=== PATIENT | female | born 1955 | race Caucasian/White ===

== ENCOUNTER 2017-01-05 06:10 | Day surgery (SDC) | payer MEDICARE, OTHER ==
[~2017-01-05] VITALS: Ht 163.8 cm; Wt 67.3 kg
[~2017-01-05 06:10] MED LIST: LORT7.5T3 PO; MORP30SU PO; SERO400T PO; TEMA15CA PO; TRAM50TA PO
[2017-01-05] MEDS ORDERED: PRED1 PO (06:39)
[2017-01-05 06:42] VITALS: BP 109/71; PULSE 76; RESP 20; TEMP 97.8; O2SAT 95
[2017-01-05] MEDS ORDERED: ceFAZolin 2 GM PREMIX 50 ML - implanted port removal IV SCH (07:00)
[2017-01-05] MEDS ORDERED: SODIUM CHLORIDE 0.9% 1000 ML IV SCH (07:00)
[2017-01-05] MEDS ORDERED: LIDOCAINE 1%/EPINEPHrine 1:100,000 SOLN 20 ML VIAL ONE (07:52)
[2017-01-05 08:40] VITALS: BP 142/74; PULSE 71; RESP 18; TEMP 97.6; O2SAT 93
--- NOTE | 2017-01-05 08:43 | PD.RAD ---
Post Procedure Progress Note Pre Procedure Diagnosis: (1) History of lung cancer Post Procedure Diagnosis: (1) History of lung cancer Procedure Date: Jan 05, 2017 Supervising Radiologist: Jude Beltran Proceduralist/Assist: David Vargas RT(R), RT Nikolas(R)(CV) Anesthesia: Local, Analgesia Plan of Activity Patient to Unit: ROPU Patient Condition: Good See PACS Report for procedural detail/treatment Central Venous Access Device Procedure 1 Left Infusaport Removal single lumen Rwandan: 8 Jude Beltran MD Jan 05, 2017 08:43
[2017-01-05 08:55] VITALS: BP 129/84; PULSE 66; RESP 18; O2SAT 94
[2017-01-05 09:25] VITALS: BP 94/54; PULSE 78; RESP 18; O2SAT 93
--- NOTE | 2017-01-06 16:20 | RADRPT ---
EXAM DATE/TIME: 01/05/2017 00:00 [facility] COMPARISON: No previous studies available for comparison. INDICATIONS : Patient presents with history of lung cancer in need of port removal that is no longer needed. MEDICAL HISTORY : History of lung cancer with brain mets Hx pneumonia COPD SURGICAL HISTORY : T and A Left port placement Brain mass resection ENCOUNTER: Initial ACUITY: > 1 year PAIN SCORE: 0/10 LOCATION: N/A 1.) 15 units Lidocaine with epinephrine SC Prophylactic antibiotics were administered with appropriate pre-procedure timing. Vancomycin within 2 hrs of procedure, Ancef (or alternative) within 1 hr of procedure. PROCEDURE : 1. Removal of [id number]. 2. Conscious sedation with continuous EKG and oximetry monitoring. The risk, benefits and potential complications of Wqffas-i-[id number] removal were discussed. Written conse nt was obtained. The patient was placed supine. The chest wall was prepped in sterile fashion. Full sterile techniqu e was used, including cap, mask, sterile gloves and gown, and a large sterile sheet. Hand hygiene an d 2% chlorhexidine and/or Betadine/alcohol prep was utilized per protocol for cutaneous antisepsis. The skin and subcutaneous tissues were infiltrated with local anesthetic solution. A small incision w as made, the subcutaneous pocket was opened. The port was dissected from the subcutaneous tissues and easily removed in one piece. The pocket incision was closed with subcuticular Vicryl suture. Steri -Strips were applied. Conscious sedation was performed with the prescribed dosages and duration as above. The patient tole rated the procedure well and there were no complications. EKG and oximetry remained stable throughou t the procedure. The patient was sent to post anesthesia recovery in stable condition. CONCLUSION: Uncomplicated port removal as above. Jude Beltran MD on January 06, 2017 at 16:18 Board Certified Radiologist. This report was verified electronically.
== END 2017-01-05 09:40 | disposition home or self-care (01) ==
LOC: HROP 06:10 → HRIP 06:11 → HROP 09:40
PROVIDERS: ATTEND Internal Medicine Hematology & Oncology
DX: Z85.118 Personal history of other malignant neoplasm of bronchus and lung (principal)
CPT/HCPCS: 36590; J0690; J7030

== ENCOUNTER → 2017-06-22 | Outpatient (CLI) | payer MEDICARE ==
[~2017-06-22] MED LIST changes: -LORT7.5T3 PO; -MORP30SU PO; +PRED1 PO; -TRAM50TA PO
--- NOTE | 2017-06-24 12:44 | RSPPFT ---
DATE OF PROCEDURE: 06/22/17 COMMENTS: Spirometry with FVC of 2.5, FEV1 of 1.2, FEV1/FVC ratio at 51%. A positive and significant response to acutely inhaled bronchodilator noted. Slow vital capacity is 96% of predicted. TLC is 114%. Diffusion capacity is 58%. IMPRESSION: 1. Moderately severe airways obstruction. 2. No evidence of airways restriction. 3. Mild reduction in diffusion capacity. 4. Positive and significant response to acutely inhaled bronchodilator.
== END ==
LOC: PHRSP 10:40
PROVIDERS: ATTEND Internal Medicine
DX: J42 Unspecified chronic bronchitis (principal); J44.9 Chronic obstructive pulmonary disease, unspecified; C34.90 Malignant neoplasm of unspecified part of unspecified bronchus or lung
CPT/HCPCS: 94060; 94726; 94729

== ENCOUNTER 2017-08-10 14:15 | Inpatient (IN) | payer MEDICARE ==
[~2017-08-10] VITALS: Ht 162.6 cm; Wt 74.3 kg
[2017-08-10 15:03] VITALS: BP 136/82; PULSE 82; RESP 16; TEMP 97.4; O2SAT 96
--- NOTE | 2017-08-10 16:11 | RADRPT ---
EXAM DATE/TIME: 08/10/2017 15:46 [facility] COMPARISON: No previous studies available for comparison. INDICATIONS : Right forearm pain; fall today. MEDICAL HISTORY : None. SURGICAL HISTORY : None. ENCOUNTER: Initial ACUITY: 1 day PAIN SCORE: 10/10 LOCATION: Right forearm. FINDINGS: Two view examination of the right forearm demonstrates no evidence of fracture or dislocation. Bony mineralization is normal. The soft tissue structures are intact. CONCLUSION: Negative, incomplete evaluation of the wrist and elbow. Hung Rosario MD FACR on August 10, 2017 at 16:08 Board Certified Radiologist. This report was verified electronically.
--- NOTE | 2017-08-10 16:12 | RADRPT ---
EXAM DATE/TIME: 08/10/2017 15:47 [facility] COMPARISON: No previous studies available for comparison. INDICATIONS : Right upper arm pain; fall today. MEDICAL HISTORY : None. SURGICAL HISTORY : None. ENCOUNTER: Initial ACUITY: 1 day PAIN SCORE: 10/10 LOCATION: Right humerus. FINDINGS: There is severely comminuted fracture proximal humerus with large butterfly fragment evident. The hu meral head is aligned with the femoral condyle. CONCLUSION: Humeral fracture involving proximal humerus as described above. Hung Rosario MD FACR on August 10, 2017 at 16:09 Board Certified Radiologist. This report was verified electronically.
[2017-08-10] MEDS ORDERED: VENTAER INH (16:30)
[2017-08-10] MEDS ORDERED: TEMA15CA PO (16:30)
[2017-08-10] MEDS ORDERED: SERO400T PO (16:30)
[2017-08-10] MEDS ORDERED: PRED1 PO (16:30)
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
[2017-08-10] MEDS ORDERED: ONDANSETRON HCL 4 MG/2 ML VIAL IV PUSH ONE (16:45)
[2017-08-10] MEDS ORDERED: MORPHINE SULFATE 4 MG/ML INJ IV PUSH ONE (16:45)
[2017-08-10] MEDS ORDERED: LACTULOSE SYRUP 20 GM/30 ML CUP PO PRN (17:45)
[2017-08-10] MEDS ORDERED: ALBUTEROL SULFATE 90 MCG/ACT HFA 8 GM INHALER INH PRN (17:45)
[2017-08-10] MEDS ORDERED: MORPHINE SULFATE 4 MG/ML INJ IV PRN (17:45)
[2017-08-10] MEDS ORDERED: BISACODYL 10 MG SUPP RECTAL PRN (17:45)
[2017-08-10] MEDS ORDERED: TEMAZEPAM 15 MG CAP PO PRN (17:45)
[2017-08-10] MEDS ORDERED: SODIUM CHLORIDE 0.9% FLUSH 10 ML FLUSH IV FLUSH PRN (17:45)
[2017-08-10] MEDS ORDERED: NALOXONE HCL 0.4 MG/ML AMP IV PRN (17:45)
[2017-08-10] MEDS ORDERED: ACETAMINOPHEN 325 MG TAB PO PRN (17:45)
[2017-08-10] MEDS ORDERED: ACETAMINOPHEN/HYDROcodone 325 MG/5 MG TAB PO PRN (17:45)
[2017-08-10] MEDS ORDERED: MAGNESIUM HYDROXIDE SUSP 30 ML CUP PO PRN (17:45)
[2017-08-10] MEDS ORDERED: ONDANSETRON HCL 4 MG/2 ML VIAL IVP PRN (17:45)
[2017-08-10] MEDS ORDERED: SENNOSIDES 8.6 MG TAB PO PRN (17:45)
--- NOTE | 2017-08-10 17:53 | HHI.HP ---
[facility] Sanjiv Carlos M.D. 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 She states she was trying to move food from 1 [place] to the next when she slipped and fell landing on her outstretched right hand. She states her torso twisted as she fell. In the emergency department x- ray showed a proximal humerus fracture. Orthopedic surgery requested the patient be transferred to the [facility] for surgery. The patient states she 's otherwise been in a good state of health recently. 10 point review systems negative. She does have a history of COPD and continues to smoke but does not use home oxygen. She also has a history of lung cancer treated with radiation and chemotherapy 1 year ago under the treatment of Dr. chase and she has been in remission. Past Family Social History Past Medical History COPD Lung cancer Reported Medications Allergies Coded Allergies Type Severity Reaction Last Updated Verified levofloxacin Allergy Intermediate PT STATES THAT SHE IS NOT ALLERGIC 08/10/17 No Active Scripts Medications Dose Route/Sig Max Daily Dose Days Date Category Ventolin Hfa 18 GM Inh (Albuterol Sulfate) 90 Mcg/Act Aer 2 Puff INH Q4-6H PRN 08/10/17 Reported Prednisone 1 Mg Tab 0.5 Mg PO DAILY 08/10/17 Reported Temazepam 15 Mg Cap 15 Mg PO HS PRN 08/10/17 Reported Seroquel (Quetiapine Fumarate) 400 Mg Tab 400 Mg PO HS 08/10/17 Reported Allergies: Coded Allergies: levofloxacin (Unverified Allergy, Intermediate, PT STATES THAT SHE IS NOT ALLERGIC, 08/10/17) PT STATES NOT ALLERGIC. Family History Reviewed and noncontributory Social History Denies alcohol Physical Exam Vital Signs Vital Signs Date Time Temp Pulse Resp B/P (MAP) Pulse Ox O2 Delivery O2 Flow Rate FiO2 08/10/17 15:03 97.4 82 16 136/82 (100) 96 Physical Exam GENERAL: Well-nourished, well-developed patient. SKIN: Warm and dry. HEAD: Normocephalic. EYES: No scleral icterus. No injection or drainage. NECK: Supple, trachea midline. No JVD or lymphadenopathy. CARDIOVASCULAR: Regular rate and rhythm without murmurs, gallops, or rubs. RESPIRATORY: Breath sounds equal bilaterally. No accessory muscle use. GASTROINTESTINAL: Abdomen soft, non-tender, nondistended. EXTREMITIES: No cyanosis, or edema. Marked swelling of her right shoulder and upper humerus. NEUROLOGICAL: Awake, alert, and oriented x 3. Non-focal. Caprini VTE Risk Assessment Caprini VTE Risk Assessment: Mod/High Risk (score >= 2) Caprini Risk Assessment Model Point Value = 1 Point Value = 2 Point Value = 3 Point Value = 5 Age 41-60 Minor surgery BMI > 25 kg/m2 Swollen legs Varicose veins or History of unexplained or recurrent spontaneous Oral contraceptives or hormone replacement Sepsis (< 1 month) Serious lung disease, including pneumonia (< 1 month) Abnormal pulmonary function Acute myocardial infarction Congestive heart failure (< 1 month) History of inflammatory bowel disease Medical patient at bed rest Age 61-74 Arthroscopic surgery Major open surgery (> 45 min) Laparoscopic surgery (> 45 min) Malignancy Confined to bed (> 72 hours) Immobilizing plaster cast Central venous access Age >= 75 History of VTE Family history of VTE Factor V Leiden Prothrombin [id number] Lupus anticoagulant Anticardiolipin antibodies Elevated serum homocysteine Heparin-induced thrombocytopenia Other congenital or acquired thrombophilia Stroke (< 1 month) Elective arthroplasty Hip, pelvis, or leg fracture Acute spinal cord injury (< 1 month) Prophylaxis Regimen Total Risk Factor Score Risk Level Prophylaxis Regimen 0-1 Low Early ambulation 2 Moderate Order ONE of the following: *Sequential Compression Device (SCD) *Heparin 5000 units SQ BID 3-4 Higher Order ONE of the following medications: *Heparin 5000 units SQ TID *Enoxaparin/Lovenox 40 mg SQ daily (WT < 150 kg, CrCl > 30 mL/min) *Enoxaparin/Lovenox 30 mg SQ daily (WT < 150 kg, CrCl > 10-29 mL/min) *Enoxaparin/Lovenox 30 mg SQ BID (WT < 150 kg, CrCl > 30 mL/min) AND/OR *Sequential Compression Device (SCD) 5 or more Highest Order ONE of the following medications: *Heparin 5000 units SQ TID (Preferred with Epidurals) *Enoxaparin/Lovenox 40 mg SQ daily (WT < 150 kg, CrCl > 30 mL/min) *Enoxaparin/Lovenox 30 mg SQ daily (WT < 150 kg, CrCl > 10-29 mL/min) *Enoxaparin/Lovenox 30 mg SQ BID (WT < 150 kg, CrCl > 30 mL/min) AND *Sequential Compression Device (SCD) Assessment and Plan Problem List: (1) COPD (chronic obstructive pulmonary disease) ICD Code: J44.9 - Chronic obstructive pulmonary disease, unspecified (2) Right humeral fracture ICD Code: S42.301A - Unspecified fracture of shaft of humerus, right arm, initial encounter for closed fracture Status: Acute (3) History of lung cancer ICD Code: Z85.118 - Personal history of other malignant neoplasm of bronchus and lung Status: Acute Assessment and Plan -Right humerus fracture. As per orthopedic surgery -COPD without acute exacerbation. Continue bronchodilators and prednisone daily. -History of lung cancer in remission. -DVT prophylaxis with SCDs Problem Qualifiers (1) Right humeral fracture: Qualified Codes: S42.291A - Other displaced fracture of upper end of right humerus, initial encounter for closed fracture Brianna Milian MD Aug 10, 2017 17:53
--- NOTE | 2017-08-10 17:54 | RADRPT ---
EXAM DATE/TIME: 08/10/2017 17:33 [facility] COMPARISON: No previous studies available for comparison. INDICATIONS : Right wrist pain. MEDICAL HISTORY : None. SURGICAL HISTORY : None. ENCOUNTER: Initial ACUITY: 1 day PAIN SCORE: 4/10 LOCATION: Right wrist. FINDINGS: Three view examination of the right wrist demonstrates soft tissue swelling. Minimally displaced frac ture distal radius. Prominent degenerative changes within the lateral carpus and first carpometacarpa l joint. Bony mineralization is normal. CONCLUSION: Minimal displaced distal radius fracture. Ignacio Sandoval MD on August 10, 2017 at 17:53 Board Certified Radiologist. This report was verified electronically.
[2017-08-10 18:14] LABS: AUTOMATED NEUTROPHIL # 13.1 TH/MM3 (1.8-7.7); BASOPHIL % 0.1 % (0.0-2.0); EOSINOPHIL # 0.1 TH/MM3 (0-0.4); EOSINOPHIL % 0.4 % (0.0-4.0); HEMATOCRIT 42.5 % (35.0-46.0); LYMPH % 4.8 % (9.0-44.0); LYMPHOCYTE # 0.7 TH/MM3 (1.0-4.8); MEAN CELL VOLUME 89.7 FL (80.0-100.0); MEAN CORPUSCULAR HEMOGLOBIN 30.3 PG (27.0-34.0); MEAN CORPUSCULAR HGB CONC 33.7 % (32.0-36.0); MONO % 5.4 % (0.0-8.0); NEUT % 89.3 % (16.0-70.0); PLATELET COUNT 246 TH/MM3 (150-450); RED BLOOD COUNT 4.74 MIL/MM3 (4.00-5.30); RED CELL DISTRIBUTION WIDTH 13.9 % (11.6-17.2); WHITE BLOOD COUNT 14.7 TH/MM3 (4.0-11.0)
--- NOTE | 2017-08-10 18:14 | RADRPT ---
EXAM DATE/TIME: 08/10/2017 17:30 [facility] COMPARISON: CTA CHEST W 3D RECON, December 30, 2012, 14:04. INDICATIONS : Evaluate for pneumonia, pneumothorax, or communicable disease. Pre op for right humerus surgery. MEDICAL HISTORY : Carcinoma, lung. Chronic obstructive pulmonary disease. SURGICAL HISTORY : Infusaport. ENCOUNTER: Initial ACUITY: 1 day PAIN SCORE: 0/10 LOCATION: Bilateral chest FINDINGS: There is irregular density seen in the right upper lung. There is retraction of the mediastinum in th is region. This finding was seen on a prior CT examination from 12/30/2012. The heart size is normal. The lungs are otherwise clear. No effusion is seen. There is fracture of the proximal right humerus. CONCLUSION: Chronic change in the right upper lobe that has been present since 2012. This is likely from prior tr eatment for lung cancer. An acute abnormality within the chest is not seen. There is an acute appeari ng proximal right humerus fracture. Galileo Deshpande MD on August 10, 2017 at 18:10 Board Certified Radiologist. This report was verified electronically.
[2017-08-10 18:17] LABS: HEMO FLAGS DIFF FINAL
[2017-08-10 18:21] LABS: CHLORIDE 105 MEQ/L (98-107); POTASSIUM 3.8 MEQ/L (3.5-5.1); SODIUM (NA) 138 MEQ/L (136-145)
[2017-08-10 18:23] LABS: APTT (PATIENT) 24.7 SEC (24.3-30.1); INTERNATIONAL NORMALIZED RATIO 0.9 RATIO; PROTHROMBIN TIME - PATIENT 10.3 SEC (9.8-11.6)
[2017-08-10 18:25] LABS: ANION GAP 6 MEQ/L (5-15); BICARBONATE 26.8 MEQ/L (21.0-32.0)
[2017-08-10 18:26] LABS: BLOOD UREA NITROGEN 13 MG/DL (7-18)
[2017-08-10 18:28] LABS: ALT (GPT) 24 U/L (10-53)
[2017-08-10 18:29] LABS: AST (GOT) 25 U/L (15-37); GLOMERULAR FILTRATION RATE 60 ML/MIN (>89)
[2017-08-10 18:30] LABS: TOTAL BILIRUBIN ADULT 0.5 MG/DL (0.2-1.0)
[2017-08-10 18:31] LABS: ALKALINE PHOSPHATASE 91 U/L (45-117)
[2017-08-10 18:38] VITALS: BP 111/73; PULSE 78; RESP 16; O2SAT 95
[2017-08-10] MEDS: SODIUM CHLOR 0.9% 1000 ML INJ 1,000 ML IV SCH (20:49)
[2017-08-10] MEDS: SODIUM CHLORIDE 0.9% FLUSH 10 ML FLUSH IV FLUSH SCH (20:54)
[2017-08-10 23:39] VITALS: BP 124/78
[2017-08-11] VITALS (7 sets, daily range): BP systolic 93–165; BP diastolic 55–85; PULSE 64–85; RESP 16–18; TEMP 96.2–98.4; O2SAT 93–96
[2017-08-11] MEDS: ACETAMINOPHEN/HYDROcodone 325 MG/7.5 MG TAB PO PRN ×4 (00:31→19:34)
[2017-08-11] MEDS: DOCUSATE SODIUM 50 MG/SENNA 8.6 MG TAB PO SCH ×3 (00:31→19:35)
[2017-08-11] MEDS: QUEtiapine FUMARATE 200 MG TAB PO SCH ×2 (00:31→19:35)
[2017-08-11] MEDS: SODIUM CHLOR 0.9% 1000 ML INJ 1,000 ML IV SCH ×3 (00:32→21:49)
[2017-08-11] MEDS ORDERED: LACTATED RINGER'S 1000 ML IV PRN (03:00)
[2017-08-11] MEDS ORDERED: SODIUM CHLORID 0.9% 500 ML IV PRN (03:00)
--- NOTE | 2017-08-11 07:16 | PD.ORT.PN ---
Subjective Subjective Remarks Slip and fall onto right arm with significant pain to right shoulder and humerus Objective Vitals Vital Signs Date Time Temp Pulse Resp B/P (MAP) Pulse Ox O2 Delivery O2 Flow Rate FiO2 08/11/17 00:25 97.0 73 17 124/62 (82) 94 08/10/17 23:39 76 18 124/78 (93) 98 21 08/10/17 21:35 18 08/10/17 18:38 78 16 111/73 (86) 95 08/10/17 15:03 97.4 82 16 136/82 (100) 96 Result Diagram: 08/10/17 1650 08/10/17 1650 Other Results Laboratory Tests Test 08/10/17 16:50 Prothromb Time International Ratio 0.9 RATIO Prothrombin Time 10.3 SEC (9.8-11.6) Imaging Last 72 hours Impressions Wrist X-Ray 08/10/17 0000 Signed Impressions: Service Date/Time: Thursday, August 10, 2017 17:33 - CONCLUSION: Minimal displaced distal radius fracture. Ignacio Sandoval MD Radius/Ulna X-Ray 08/10/17 0000 Signed Impressions: Service Date/Time: Thursday, August 10, 2017 15:46 - CONCLUSION: Negative, incomplete evaluation of the wrist and elbow. Hung Rosaroi MD FACR Humerus X-Ray 08/10/17 0000 Signed Impressions: Service Date/Time: Thursday, August 10, 2017 15:47 - CONCLUSION: Humeral fracture involving proximal humerus as described above. Hung Rosario MD FACR Chest X-Ray 08/10/17 0000 Signed Impressions: Service Date/Time: Thursday, August 10, 2017 17:30 - CONCLUSION: Chronic change in the right upper lobe that has been present since 2012. This is likely from prior treatment for lung cancer. An acute abnormality within the chest is not seen. There is an acute appearing proximal right humerus fracture. Galileo Deshpande MD Objective Remarks Right upper extremity: Coaptation splint in place with ice cuff. No tenderness to palpation over distal radius. She does have tenderness with movement of wrist over tendons. Mild swelling. Distally intact sensation over the radial ulnar median nerve decisions with good capillary refills Assessment & Plan Assessment and Plan Right proximal humerus and humeral shaft fracture Both surgical and nonsurgical intervention is discussed. We'll proceed with surgical intervention today Nothing by mouth Smoking cessation is discussed a must stop smoking, this will continue to create risks with wound palpitations and blocking bone healing Sign consents We'll plan for discharge tomorrow or the next day Basim Thomas Jr. Aug 11, 2017 07:16
[2017-08-11] MEDS ORDERED: HYDR-3583 PO (08:33)
[2017-08-11] MEDS: predniSONE 1 MG TAB PO SCH (09:00)
[2017-08-11] MEDS: SODIUM CHLORIDE 0.9% FLUSH 10 ML FLUSH IV FLUSH SCH (09:00)
[2017-08-11] MEDS ORDERED: RESP: ALBUTEROL 2.5 MG/3 ML NEB (SCH) ONE (09:13)
[2017-08-11] MEDS ORDERED: ERGO1CAP30 PO (10:00)
[2017-08-11] MEDS ORDERED: CALCTAB19 PO (10:00)
[2017-08-11] MEDS ORDERED: VITA2000 PO (10:00)
[2017-08-11] MEDS ORDERED: VANCOMYCIN HCL 1000 MG VIAL ONE (10:20)
[2017-08-11] MEDS ORDERED: ceFAZolin INJ 1,000 MG VIAL ONE (10:20)
[2017-08-11] MEDS ORDERED: ACETAMINOPHEN 1000 MG/100 ML 100 ML IV ONE (10:20)
[2017-08-11] MEDS ORDERED: HYDROmorphone HCL PF 2 MG/ML VIAL ONE (10:20)
[2017-08-11] MEDS ORDERED: GENTAMICIN SULFATE 80 MG/2 ML VIAL ONE (10:20)
[2017-08-11] MEDS ORDERED: PHENYLEPH/NS 1000 MCG/10 ML SYR IV ONE (10:20)
[2017-08-11] MEDS ORDERED: NEOSTIGMINE 3 MG/3 ML SYR IV ONE (10:20)
[2017-08-11] MEDS ORDERED: PROPOFOL 200 MG/20 ML AMP IV ONE (10:20)
[2017-08-11] MEDS ORDERED: ePHEDrine/NS 25 MG/5 ML SYR IV ONE (10:21)
[2017-08-11] MEDS ORDERED: ONDANSETRON HCL 4 MG/2 ML VIAL IV PUSH ONE (10:21)
--- NOTE | 2017-08-11 12:23 | PD.OP ---
cc: Tonio Sanchez MD Operative Report Date of Surgery: Aug 11, 2017 Preoperative Diagnosis: Displaced right humeral neck fracture, displaced right humeral shaft fracture Postoperative Diagnosis: Procedure: Open reduction internal fixation right humeral shaft, open reduction internal fixation right proximal humerus Surgeon: Tonio Sanchez Field Servicer(s): DURAN Pearce PA-C The surgical procedure was assisted by my physician assistant production editor. My P.A. presence was necessary throughout this case for the manipulation and positioning of the surgical extremity. My P.A. was assisting me throughout the duration of this procedure. The skill set of a physician assistant production editor was medically necessary to complete this procedure. During the surgical case the wound care technician was working at the back table and the physician assistant production editor was directly assisting me. Operation and Findings: Patient was seen and evaluated preoperatively. Patient was found to have a displaced right humeral shaft fracture and right proximal humerus fracture. The risks and benefits of surgical and nonsurgical options were discussed in detail and informed consent was obtained for surgery. Patient was brought to the operating room and placed on or table. IV sedation and GETA were administered by anesthesiologist. Antibiotics were given prior to incision. Operative arm and shoulder were prepped with alcohol followed by Hibiclens and draped usual sterile fashion. Timeout procedure was performed. Procedure began with a 9 inch incision over the anterior shoulder. Cephalic vein was identified. A deltopectoral approach was utilized proximally. Distally the biceps was retracted and brachialis muscle was split. Fracture hematoma was now removed from the fracture. The fracture was now visualized. Soft tissue was retracted. Attention was now turned to reduction of the humeral shaft fracture. There was comminution of this region. The fracture fragments were reduced manually. Fracture tenaculums were used to hold provisional fixation. 2 Synthes 2.7 cortical lag screws were placed from anterior to posterior. Good compression was obtained. Next attention was turned towards the humeral neck fracture. The humeral shaft was reduced to the humeral head. Fracture was manipulated to achieve excellent reduction. Multiplanar fluoroscopy confirmed well aligned fracture. Multiple K wires were used to hold provisional fixation. A long Synthes proximal humerus plate was selected to use band all of the fractures. Plate was provisionally held in place K wires. 3.5 cortical screws were used to compress plate to bone. Fluoroscopy confirmed appropriate plate placement and fracture reduction. Multiple locking screws were now placed in the humeral head. Screws were predrilled and premeasured for appropriate length. Care was taken not to penetrate the articular surface. Additional screws were placed in the humeral shaft. Final fluoroscopy revealed well aligned fracture with well- placed hardware. Wound was thoroughly irrigated. Fascia was closed with #1 Vicryl, subcutaneous tissues closed with 3-0 Vicryl, and skin was closed with rachelle. Sterile dressings were applied. Patient was placed into a sling. Patient was awakened and transferred to recovery in stable condition. Needle and sponge counts were correct. Tonio Sanchez MD Aug 11, 2017 12:23
[2017-08-11] MEDS ORDERED: HYDR-3366 PO (12:28)
[2017-08-11] MEDS ORDERED: SODIUM CHLORIDE 0.9% FLUSH 5 ML FLUSH IVF PRN (12:30)
[2017-08-11] MEDS ORDERED: diphenhydrAMINE HCL 25 MG CAP PO PRN (12:30)
[2017-08-11] MEDS ORDERED: DO NOT ADM ANY ANTICOAGULANT DRUGS PRN (13:00)
[2017-08-11] MEDS ORDERED: ERGOCALCIFEROL (VIT D2) 50,000 UNIT CAP PO SCH (13:00)
--- NOTE | 2017-08-11 14:01 | HHI.PR ---
Subjective Remarks Follow-up COPD. Patient seen in PACU following ORIF right humerus fracture. She is still somewhat sedated, and states that she feels tired. Pain is adequately controlled at this time. Denies dyspnea, chest pain, nausea, vomiting. Objective Vitals Vital Signs Date Time Temp Pulse Resp B/P (MAP) Pulse Ox O2 Delivery O2 Flow Rate FiO2 08/11/17 13:30 97.5 70 16 120/63 (82) 96 Nasal Cannula 2 08/11/17 13:15 76 15 125/65 (85) 95 Nasal Cannula 2 08/11/17 13:00 79 14 115/55 (75) 98 Nasal Cannula 3 08/11/17 12:48 97.1 73 14 114/57 (76) 100 Nasal Cannula 4 08/11/17 07:34 96.2 70 16 93/55 (68) 96 08/11/17 04:55 97.2 64 18 165/85 (111) 95 08/11/17 04:45 96.7 76 17 116/59 (78) 93 08/11/17 00:25 97.0 73 17 124/62 (82) 94 08/10/17 23:39 76 18 124/78 (93) 98 21 08/10/17 21:35 18 08/10/17 18:38 78 16 111/73 (86) 95 08/10/17 15:03 97.4 82 16 136/82 (100) 96 I/O 08/10/17 08/10/17 08/10/17 08/11/17 08/11/17 08/11/17 07:00 15:00 23:00 07:00 15:00 23:00 Intake Total 550 ml 1500 ml Output Total 100 ml Balance 550 ml 1400 ml Intake Oral 0 ml IV Total 550 ml Other 1500 ml Output Estimated Blood Loss 100 ml # Voids 3 0 # Bowel Movements 1 Result Diagram: 08/10/17 16508/10/17 1650 Imaging Last Impressions Wrist X-Ray 08/10/17 0000 Signed Impressions: Service Date/Time: Thursday, August 10, 2017 17:33 - CONCLUSION: Minimal displaced distal radius fracture. Ignacio Sandoval MD Radius/Ulna X-Ray 08/10/17 0000 Signed Impressions: Service Date/Time: Thursday, August 10, 2017 15:46 - CONCLUSION: Negative, incomplete evaluation of the wrist and elbow. Hung Rosario MD FACR Humerus X-Ray 08/10/17 0000 Signed Impressions: Service Date/Time: Thursday, August 10, 2017 15:47 - CONCLUSION: Humeral fracture involving proximal humerus as described above. Hung Rosario MD FACR Chest X-Ray 08/10/17 0000 Signed Impressions: Service Date/Time: Thursday, August 10, 2017 17:30 - CONCLUSION: Chronic change in the right upper lobe that has been present since 2012. This is likely from prior treatment for lung cancer. An acute abnormality within the chest is not seen. There is an acute appearing proximal right humerus fracture. Galileo Deshpande MD Objective Remarks General: No acute distress. Somewhat sedated. Heart: Regular rate and rhythm. No murmur. Lungs: Clear to auscultation bilaterally. No wheezes, rales, or rhonchi. Breathing is nonlabored. Abdomen: Soft, nontender, nondistended. Extremities: No lower extremity edema. Psych: Somewhat sedated, but awakens and answers questions appropriately. Procedures 08/11/17 ORIF right humerus fracture Urinary Catheter: No Vascular Central Line Catheter: No A/P Problem List: (1) COPD (chronic obstructive pulmonary disease) ICD Code: J44.9 - Chronic obstructive pulmonary disease, unspecified (2) Right humeral fracture ICD Code: S42.301A - Unspecified fracture of shaft of humerus, right arm, initial encounter for closed fracture Status: Acute (3) History of lung cancer ICD Code: Z85.118 - Personal history of other malignant neoplasm of bronchus and lung Status: Acute Assessment and Plan 1. Right humerus fracture: Status post ORIF. Management per orthopedic surgery. Continue pain control. Right upper extremity in a sling. 2. COPD: Not in acute exacerbation. The dilators as needed. Continue prednisone daily. Supplemental oxygen as needed. The patient states that she does not use oxygen at home. 3. DVT prophylaxis: SCDs. Problem Qualifiers (1) Right humeral fracture: Qualified Codes: S42.291A - Other displaced fracture of upper end of right humerus, initial encounter for closed fracture Raúl Flores MD Aug 11, 2017 14:01
--- NOTE | 2017-08-11 14:04 | EKG ---
Date Performed: 08/10/2017 Time Performed: 17:20:04 PTAGE: 62 years EKG: Sinus rhythm NONSPECIFIC T-WAVE ABNORMALITY BORDERLINE ECG Compared to prior tracing no significant change PREVIOUS TRACING : 04/19/2013 15.04 DOCTOR: Muriel Llamas Interpretating Date/Time 08/11/2017 13:57:45
[2017-08-11] MEDS: CALCIUM/VITAMIN D 250 MG/125 U TAB PO SCH ×2 (14:25→18:26)
[2017-08-11] MEDS: ceFAZolin 2 GM PREMIX 50 ML IV SCH ×2 (14:25→21:49)
--- NOTE | 2017-08-11 15:12 | RADRPT ---
EXAM DATE/TIME: 08/11/2017 12:08 [facility] COMPARISON: HUMERUS RIGHT (MIN 2VWS), August 10, 2017, 15:47. INDICATIONS : Right proximal humerus fracture repair. OR. MEDICAL HISTORY : None. SURGICAL HISTORY : Infusaport. ENCOUNTER: Initial ACUITY: 1 day PAIN SCORE: Non-responsive. LOCATION: Right proximal humerus FINDINGS: Multiple cone-down views of the proximal humerus were obtained using a matrix camera and demonstrate that the patient is status post open rigid internal fixation with placement of a screw plate fixation device along the proximal humerus transfixing the comminuted fracture. The fracture fragments are in near-anatomic alignment. CONCLUSION: Status post open rigid internal fixation. Basim Dawn MD on August 11, 2017 at 15:10 Board Certified Radiologist. This report was verified electronically.
[2017-08-11] MEDS: SODIUM CHLORIDE 0.9% FLUSH 5 ML FLUSH IVF SCH (19:35)
[2017-08-11] MEDS: MORPHINE SULFATE 4 MG/ML INJ IV PUSH PRN (21:48)
[2017-08-11] MEDS: ACETAMINOPHEN/HYDROcodone 325 MG/10 MG TAB PO PRN (23:16)
[2017-08-12 00:45] VITALS: BP 121/66; PULSE 72; RESP 16; TEMP 97.8; O2SAT 95
[2017-08-12 01:28] VITALS: O2SAT 92
[2017-08-12] MEDS: MORPHINE SULFATE 4 MG/ML INJ IV PUSH PRN (01:52)
[2017-08-12 03:55] VITALS: BP 121/73; PULSE 83; RESP 17; TEMP 97.4; O2SAT 97
[2017-08-12] MEDS: ACETAMINOPHEN/HYDROcodone 325 MG/10 MG TAB PO PRN ×3 (05:51→12:06)
[2017-08-12] MEDS: ceFAZolin 2 GM PREMIX 50 ML IV SCH (05:51)
--- NOTE | 2017-08-12 07:03 | PD.ORT.PN ---
Subjective Subjective Remarks Pain controlled no new complaints Objective Vitals Vital Signs Date Time Temp Pulse Resp B/P (MAP) Pulse Ox O2 Delivery O2 Flow Rate FiO2 08/12/17 03:55 97.4 83 17 121/73 (89) 97 08/12/17 00:45 97.8 72 16 121/66 (84) 95 08/11/17 20:45 98.4 85 17 105/64 (78) 96 08/11/17 19:33 96 Nasal Cannula 2.00 08/11/17 15:33 16 08/11/17 15:15 96.2 75 16 113/64 (80) 95 08/11/17 14:11 96.2 66 16 120/66 (84) 96 08/11/17 13:30 97.5 70 16 120/63 (82) 96 Nasal Cannula 2 08/11/17 13:15 76 15 125/65 (85) 95 Nasal Cannula 2 08/11/17 13:00 79 14 115/55 (75) 98 Nasal Cannula 3 08/11/17 12:48 97.1 73 14 114/57 (76) 100 Nasal Cannula 4 08/11/17 07:34 96.2 70 16 93/55 (68) 96 I/O 08/11/17 08/11/17 08/11/17 08/12/17 08/12/17 08/12/17 07:00 15:00 23:00 07:00 15:00 23:00 Intake Total 550 ml 2010 ml 960 ml 480 ml Output Total 100 ml Balance 550 ml 1910 ml 960 ml 480 ml Intake Oral 0 ml 480 ml 960 ml 480 ml IV Total 550 ml 30 ml Other 1500 ml Output Estimated Blood Loss 100 ml # Voids 3 1 3 3 # Bowel Movements 1 0 0 0 Result Diagram: 08/10/17 1650 08/10/17 1650 Imaging Last 72 hours Impressions Wrist X-Ray 08/10/17 0000 Signed Impressions: Service Date/Time: Thursday, August 10, 2017 17:33 - CONCLUSION: Minimal displaced distal radius fracture. Ignacio Sandoval MD Radius/Ulna X-Ray 08/10/17 0000 Signed Impressions: Service Date/Time: Thursday, August 10, 2017 15:46 - CONCLUSION: Negative, incomplete evaluation of the wrist and elbow. Hung Rosario MD FACR Humerus X-Ray 08/10/17 0000 Signed Impressions: Service Date/Time: Thursday, August 10, 2017 15:47 - CONCLUSION: Humeral fracture involving proximal humerus as described above. Hung Rosario MD FACR Chest X-Ray 08/10/17 0000 Signed Impressions: Service Date/Time: Thursday, August 10, 2017 17:30 - CONCLUSION: Chronic change in the right upper lobe that has been present since 2012. This is likely from prior treatment for lung cancer. An acute abnormality within the chest is not seen. There is an acute appearing proximal right humerus fracture. Galileo Deshpande MD Objective Remarks Right upper extremity: Clean dry dressings intact. Mild swelling. No pain to palpation over distal radius or scaphoid. Tenderness with movement of wrist over extensor tendons. Intact sensation distally over the radial ulnar and median nerves restrictions with good capillary refills. Assessment & Plan Assessment and Plan Right proximal humerus and humeral shaft fracture ORIF POD 1 [employer] for sling and swath Occupational therapy for pendulum swings only and education Smoking cessation is discussed a must stop smoking, this will continue to create risks with wound palpitations and blocking bone healing If pain is controlled and understands pendulum swings discharged today may be proceeded Make sure daughter understands dressing changes as well as exercises Follow-up with Dr. Sanchez or PA in 2 weeks Basim Thomas Jr. Aug 12, 2017 07:03
--- NOTE | 2017-08-12 07:05 | HHI.FF ---
Face to Face Verification Diagnosis: (1) Right humeral fracture Occupational Therapy Right UE Weight Bearing: Non WB Right UE Range of Motion: Pendular Additional Instructions No active or passive range of motion of shoulder, pendulum swings only Nursing Dressing Changes: Daily dressing change, Xeroform, Coverderm/Primapore I have seen patient Sharee Briones on 08/12/17. My clinical findings support the need for the requested home health care services because: Limited ability to care for self I certify that my clinical findings support that this patient is homebound because: Post-op weakness Basim Thomas Jr. Aug 12, 2017 07:05
[2017-08-12] MEDS: CALCIUM/VITAMIN D 250 MG/125 U TAB PO SCH (07:58)
[2017-08-12] MEDS: DOCUSATE SODIUM 50 MG/SENNA 8.6 MG TAB PO SCH (07:58)
[2017-08-12 08:00] VITALS: BP 110/52; PULSE 81; RESP 17; TEMP 96.5; O2SAT 90
[2017-08-12] MEDS: predniSONE 1 MG TAB PO SCH (08:03)
[2017-08-12] MEDS: SODIUM CHLORIDE 0.9% FLUSH 5 ML FLUSH IVF SCH (08:03)
[2017-08-12] MEDS: SODIUM CHLOR 0.9% 1000 ML INJ 1,000 ML IV SCH (08:04)
[2017-08-12] MEDS ORDERED: CHOLECALCIFEROL (VIT D3) 1000 UNIT TAB PO SCH (09:00)
--- NOTE | 2017-08-12 09:29 | MB ---
cc: CHARY ALLEN DATE OF CONSULTATION: 08/11/2017 REASON FOR CONSULTATION 1. Right proximal humerus fracture. 2. Right humeral shaft fracture. CONSULTING PHYSICIAN Dr. Brianna Milian. HISTORY OF PRESENT ILLNESS Sharee is a 62-year-old female who had a fall. 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 She slipped and fell. She landed on her right side. She had immediate right shoulder and arm pain. She presented to the emergency room where x-rays revealed a comminuted fracture of the right proximal humerus and humerus shaft. She is currently awake and alert on the orthopedic floor. Her only complaint is her right arm and shoulder. Pain is worse with movement and is improved with rest. She has a history of COPD and lung cancer. She is currently in remission. PAST MEDICAL HISTORY ILLNESSES COPD and lung cancer. ALLERGIES LEVOFLOXACIN. MEDICATIONS Include: 1. Ventolin. 2. Prednisone. 3. Temazepam. 4. Seroquel. SURGERIES 1. Excision of brain tumor. 2. Tonsillectomy and adenoidectomy. SOCIAL HISTORY The patient does continue to smoke cigarettes. She drinks alcohol occasionally. FAMILY HISTORY Noncontributory. REVIEW OF SYSTEMS The patient denies headache, visual changes, neck pain, chest pain, abdominal pain, nausea, vomiting, recent weight loss or numbness or tingling of extremities. She complains of right arm and shoulder pain. She has chronic shortness of breath from COPD. PHYSICAL EXAMINATION GENERAL: The patient is a pleasant 62-year-old female, in no acute distress. She is awake and alert. She is alert and oriented x3. She is mildly anxious. She appears well-developed, well-nourished. VITAL SIGNS: Temperature 96.2, pulse 70, respirations 16, blood pressure 93/55, O2 sat 96% on room air. HEAD: The patient is normocephalic. Pupils are equal. NECK: Soft, nontender. Trachea midline. ABDOMEN: Soft, nontender, nondistended. EXTREMITIES: Examination of the right arm reveals swelling and bruising around her shoulder. She has pain with any shoulder motion. She has minimal tenderness on her elbow or wrist or fingers. She has intact sensation in all fingers. She has good cap refill in all fingers. Radial pulses palpable. Examination of left arm reveals no pain with shoulder, elbow or wrist motion. Skin is intact. Radial pulses palpable. 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 Examination of bilateral lower extremities reveals no significant pain with hip, knee or ankle motion. Skin is intact. Dorsalis pedis pulses are palpable. X-RAYS X-rays of right humerus were reviewed. X-rays reveal comminuted fracture of the right humerus. There is fracture of the proximal humeral shaft. There is also a displaced humeral neck fracture. IMPRESSION 1. History of lung cancer. 2. COPD. 3. Smoking dependence. 4. Right humeral neck fracture. 5. Right humeral shaft fracture. PLAN Treatment options were discussed with the patient. At this point I would recommend open reduction, internal fixation of right proximal humerus and humerus shaft fractures. I discussed surgical and nonsurgical options with the patient. I explained to her that nonsurgical treatment may yield satisfactory outcome. The patient elected to proceed with surgery. Risks of surgery include bleeding, infection, injuries to arteries, nerves and blood vessels, nonunion, malunion, painful hardware as well as medical complications including blood clot, stroke, heart attack and . All questions were answered. I will plan on surgery today. A mid-level provider in my office, nurse practitioner or PA, may see this patient on a follow-up basis and continue to implement the objective of this plan including: Starting or adjusting medications, injections of muscle, tendon, bursa or joints, cast application, orthotic or brace application, physical therapy, further radiographic studies including x-ray, MRI, CT, ultrasounds or bone scan, vascular studies, neurologic studies, or other specialist consultations, and proceeding with surgical management as appropriate. MD EMERY Granados/DENISE /12:23 PM /9:07 AM
[2017-08-12 09:50] LABS: AUTOMATED NEUTROPHIL # 5.5 TH/MM3 (1.8-7.7); BASOPHIL % 0.3 % (0.0-2.0); EOSINOPHIL # 0.1 TH/MM3 (0-0.4); EOSINOPHIL % 1.2 % (0.0-4.0); HEMATOCRIT 28.2 % (35.0-46.0); HEMO FLAGS DIFF FINAL; LYMPH % 16.6 % (9.0-44.0); LYMPHOCYTE # 1.3 TH/MM3 (1.0-4.8); MEAN CELL VOLUME 90.3 FL (80.0-100.0); MEAN CORPUSCULAR HEMOGLOBIN 30.8 PG (27.0-34.0); MEAN CORPUSCULAR HGB CONC 34.1 % (32.0-36.0); MONO % 9.1 % (0.0-8.0); NEUT % 72.8 % (16.0-70.0); PLATELET COUNT 148 TH/MM3 (150-450); RED BLOOD COUNT 3.13 MIL/MM3 (4.00-5.30); RED CELL DISTRIBUTION WIDTH 14.4 % (11.6-17.2); WHITE BLOOD COUNT 7.5 TH/MM3 (4.0-11.0)
[2017-08-12 09:58] VITALS: RESP 16
--- NOTE | 2017-08-12 11:36 | HHI.DCPOC ---
Discharge Care Plan Diagnosis: (1) Tobacco abuse (2) Right humeral fracture (3) COPD (chronic obstructive pulmonary disease) (4) Leukocytosis Goals to Promote Your Health * To prevent worsening of your condition and complications * To maintain your health at the optimal level Directions to Meet Your Goals Take your medications as prescribed Follow your dietary instruction Follow activity as directed Keep your appointments as scheduled Take your immunizations and boosters as scheduled If your symptoms worsen call your PCP, if no PCP go to Urgent Care Center or Emergency Room Smoking is Dangerous to Your Health. Avoid second hand smoke Call the 24-hour hour crisis hotline for domestic abuse at Raúl Flores MD Aug 12, 2017 11:36
--- NOTE | 2017-08-12 11:39 | HHI.PR ---
Subjective Remarks Follow-up COPD. Patient feels better today. Pain is adequately controlled, but she has had continued pain in the right shoulder. Denies chest pain or dyspnea. No nausea, vomiting, diarrhea, constipation. Objective Vitals Vital Signs Date Time Temp Pulse Resp B/P (MAP) Pulse Ox O2 Delivery O2 Flow Rate FiO2 08/12/17 09:58 16 08/12/17 08:00 96.5 81 17 110/52 (71) 90 08/12/17 03:55 97.4 83 17 121/73 (89) 97 08/12/17 01:28 92 Nasal Cannula 2.00 08/12/17 00:45 97.8 72 16 121/66 (84) 95 08/11/17 20:45 98.4 85 17 105/64 (78) 96 08/11/17 19:33 96 Nasal Cannula 2.00 08/11/17 15:33 16 08/11/17 15:15 96.2 75 16 113/64 (80) 95 08/11/17 14:11 96.2 66 16 120/66 (84) 96 08/11/17 13:30 97.5 70 16 120/63 (82) 96 Nasal Cannula 2 08/11/17 13:15 76 15 125/65 (85) 95 Nasal Cannula 2 08/11/17 13:00 79 14 115/55 (75) 98 Nasal Cannula 3 08/11/17 12:48 97.1 73 14 114/57 (76) 100 Nasal Cannula 4 I/O 08/11/17 08/11/17 08/11/17 08/12/17 08/12/17 08/12/17 07:00 15:00 23:00 07:00 15:00 23:00 Intake Total 550 ml 2010 ml 1010 ml 530 ml Output Total 100 ml Balance 550 ml 1910 ml 1010 ml 530 ml Intake Oral 0 ml 480 ml 960 ml 480 ml IV Total 550 ml 30 ml 50 ml 50 ml Other 1500 ml Output Estimated Blood Loss 100 ml # Voids 3 1 3 3 # Bowel Movements 1 0 0 0 Result Diagram: 08/12/17 0923 08/10/17 1650 Imaging Last Impressions Humerus X-Ray 08/11/17 0000 Signed Impressions: Service Date/Time: Friday, August 11, 2017 12:08 - CONCLUSION: Status post open rigid internal fixation. Basim Dawn MD Wrist X-Ray 08/10/17 0000 Signed Impressions: Service Date/Time: Thursday, August 10, 2017 17:33 - CONCLUSION: Minimal displaced distal radius fracture. Ignacio Sandoval MD Radius/Ulna X-Ray 08/10/17 0000 Signed Impressions: Service Date/Time: Thursday, August 10, 2017 15:46 - CONCLUSION: Negative, incomplete evaluation of the wrist and elbow. Hung Rosario MD FACR Chest X-Ray 08/10/17 0000 Signed Impressions: Service Date/Time: Thursday, August 10, 2017 17:30 - CONCLUSION: Chronic change in the right upper lobe that has been present since 2012. This is likely from prior treatment for lung cancer. An acute abnormality within the chest is not seen. There is an acute appearing proximal right humerus fracture. Galileo Deshpande MD Objective Remarks General: No acute distress. Heart: Regular rate and rhythm. No murmur. Lungs: Clear to auscultation bilaterally. No wheezes, rales, or rhonchi. Breathing is nonlabored. Abdomen: Soft, nontender, nondistended. Extremities: No lower extremity edema. Right upper extremity in a sling. Psych: Alert and oriented. Procedures 08/11/17 ORIF right humerus fracture Urinary Catheter: No Vascular Central Line Catheter: No A/P Problem List: (1) COPD (chronic obstructive pulmonary disease) ICD Code: J44.9 - Chronic obstructive pulmonary disease, unspecified (2) Right humeral fracture ICD Code: S42.301A - Unspecified fracture of shaft of humerus, right arm, initial encounter for closed fracture Status: Acute (3) Tobacco abuse ICD Code: Z72.0 - Tobacco use (4) Leukocytosis ICD Code: D72.829 - Elevated white blood cell count, unspecified Assessment and Plan 1. Right humerus fracture: Status post ORIF. Management per orthopedic surgery. Continue pain control. Right upper extremity in a sling. 2. COPD: Not in acute exacerbation. Bronchodilators as needed. Continue prednisone daily. Supplemental oxygen as needed. The patient states that she does not use oxygen at home. 3. Tobacco abuse: Counseled to quit smoking. 4. DVT prophylaxis: SCDs. Problem Qualifiers (1) Right humeral fracture: Qualified Codes: S42.291A - Other displaced fracture of upper end of right humerus, initial encounter for closed fracture Raúl Flores MD Aug 12, 2017 11:39
== END 2017-08-12 12:32 | disposition home health service (06) | DRG 494 ==
LOC: PHEFT 14:15 → PHEDA 17:39 → N06B 08-11 00:23
PROVIDERS: ADMIT Family Medicine; ATTEND Family Medicine
PROC: 0PSC04Z Reposition Right Humeral Head with Internal Fixation Device, Open Approach (ICD-10-PCS; 2017-08-11)
PROC: 0PSF04Z Reposition Right Humeral Shaft with Internal Fixation Device, Open Approach (ICD-10-PCS; principal; 2017-08-11 10:40)
DX: S42.291A Other displaced fracture of upper end of right humerus, initial encounter for closed fracture (principal); J44.9 Chronic obstructive pulmonary disease, unspecified; S42.301A Unspecified fracture of shaft of humerus, right arm, initial encounter for closed fracture; W01.0XXA Fall on same level from slipping, tripping and stumbling without subsequent striking against object, initial encounter; Y92.511 Restaurant or cafe as the place of occurrence of the external cause; F17.210 Nicotine dependence, cigarettes, uncomplicated; Z85.118 Personal history of other malignant neoplasm of bronchus and lung; Z92.3 Personal history of irradiation; Z92.21 Personal history of antineoplastic chemotherapy; M19.079 Primary osteoarthritis, unspecified ankle and foot; F41.8 Other specified anxiety disorders
CPT/HCPCS: 71010; 73060; 73090; 73110; 76000; 80053; 85025; 85610; 85730; 86850; 86900; 86901; 93005; 94664; 96374; 96375; C1713; J0131; J0690; J1170; J1580; J2270; J2370; J2405; J2710; J3010; J3370; J7030; J7120; J7512; J7613; L3908